=== PATIENT | female | born 1985 | race Hispanic/Latino ===

== ENCOUNTER 2018-03-03 17:15 | Emergency (ER) | payer SELFPAY ==
[2018-03-03] MEDS ORDERED: NACL 0.9% 1000 ML 1,000 ML IV ONE (17:31)
[2018-03-03 18:12] LABS: Alanine Aminotransferase 17 units/L (7-56); BUN/Creatinine Ratio 11; Blood Urea Nitrogen 10 mg/dL (7-17); Calcium 9.2 mg/dL (8.4-10.2); Hemolysis Index 1
[2018-03-03 18:34] LABS: Red Blood Count 4.61 M/mm3 (3.65-5.03)
[2018-03-03 18:36] LABS: Hematocrit 37.9 % (30.3-42.9); Hemoglobin 12.8 gm/dl (10.1-14.3); Lymphocytes % (Auto) 11.7 % (13.4-35.0); Mean Corpuscular HGB Conc 34 % (30-34); Mean Corpuscular Hemoglobin 28 pg (28-32); Mean Corpuscular Volume 82 fl (79-97); Platelet Count 330 K/mm3 (140-440); Red Cell Distribution Width 14.6 % (13.2-15.2)
[2018-03-03 18:37] LABS: Basophils % (Auto) 0.4 % (0.0-1.8); Eosinophils % (Auto) 0.2 % (0.0-4.3); Lymphocytes # (Auto) 1.2 K/mm3 (1.2-5.4); Monocytes # (Auto) 1.3 K/mm3 (0.0-0.8); Monocytes % (Auto) 12.3 % (0.0-7.3)
--- NOTE | 2018-03-03 20:06 | XRay Report ---
FINAL REPORT EXAM: XR ABDOMEN 1V AP HISTORY: Abdominal distention, pain, nausea TECHNIQUE: KUB was performed Comparison: None FINDINGS: Moderate fecal retention. No suspicious calcifications. Air is present distally in the region of the pelvis. Cannot assess for free air. The imaged axial skeleton is unremarkable. Lung bases are clear. IMPRESSION: Nonspecific bowel gas pattern. Mild diffuse fecal retention.
[2018-03-03 20:47] LABS: Amorphous Crystals,Urine Few; Bacteria,Urine 4+ /HPF (Negative); Bilirubin,Urine NEG (Negative); Blood,Urine MOD (Negative); Color,Urine Yellow (Yellow); Mucus,Urine FEW /HPF
[2018-03-03 20:51] LABS: WBC,Urine > 182.0 /HPF (0.0-6.0)
[2018-03-04] MEDS ORDERED: TORADOL IV ONE (02:16)
--- NOTE | 2018-03-04 02:18 | Emergency Department Report ---
ED Abdominal Pain HPI - General Chief Complaint: Abdominal Pain Stated Complaint: ABD PAIN/CHILLS/HEAD PAIN Time Seen by Provider: 03/04/18 02:02 Source: patient Mode of arrival: Ambulatory Limitations: No Limitations - History of Present Illness MD Complaint: abdominal pain -: days(s) (5) Location: periumbilical Radiation: RLQ Migration to: RLQ Severity: severe Quality: cramping Consistency: constant Worsens With: eating Associated Symptoms: nausea, vomiting, chills, anorexia. denies: diarrhea, constipation - Related Data Previous Rx's Medication Instructions Recorded Last Taken Type Cefdinir 300 mg PO BID 10 Days #20 capsule 03/04/18 Unknown Rx Ibuprofen 800 mg PO Q6H PRN #20 tablet 03/04/18 Unknown Rx Promethazine [Phenergan TAB] 25 mg PO Q6HR PRN #10 tab 03/04/18 Unknown Rx Allergies Allergy/AdvReac Type Severity Reaction Status Date / Time Penicillins Allergy Hives Verified 03/03/18 17:31 ED Review of Systems ROS: Stated complaint: ABD PAIN/CHILLS/HEAD PAIN Other details as noted in HPI Comment: All other systems reviewed and negative Constitutional: fever, malaise Gastrointestinal: abdominal pain, nausea, vomiting. denies: diarrhea, constipation Musculoskeletal: back pain ED Past Medical Hx - Past Medical History Previous Medical History?: Yes Additional medical history: cyst on colon - Surgical History Past Surgical History?: Yes Additional Surgical History: "colon surgery". Trauma surgery to right leg. - Social History Smoking Status: Never Smoker Substance Use Type: None Other Social History: Lives in [place]. Stopped at our hospital during her drive from [facility]. - Medications Home Medications: Home Medications Medication Instructions Recorded Confirmed Last Taken Type Cefdinir 300 mg PO BID 10 Days #20 capsule 03/04/18 Unknown Rx Ibuprofen 800 mg PO Q6H PRN #20 tablet 03/04/18 Unknown Rx Promethazine [Phenergan TAB] 25 mg PO Q6HR PRN #10 tab 03/04/18 Unknown Rx ED Physical Exam - General Limitations: No Limitations General appearance: alert, in no apparent distress - Head Head exam: Present: atraumatic, normocephalic - Eye Eye exam: Present: normal appearance - ENT ENT exam: Present: mucous membranes moist - Neck Neck exam: Present: normal inspection. Absent: tenderness, meningismus - Respiratory Respiratory exam: Present: normal lung sounds bilaterally. Absent: respiratory distress, wheezes, rales, rhonchi - Cardiovascular Cardiovascular Exam: Present: regular rate, normal rhythm, normal heart sounds. Absent: systolic murmur, diastolic murmur, rubs, gallop - GI/Abdominal GI/Abdominal exam: Present: soft, distended, tenderness, guarding, rebound, normal bowel sounds - Extremities Exam Extremities exam: Present: normal inspection - Neurological Exam Neurological exam: Present: alert, oriented X3 - Psychiatric Psychiatric exam: Present: normal affect, normal mood - Skin Skin exam: Present: warm, dry, intact, normal color. Absent: rash ED Course Vital Signs 03/03/18 03/04/18 17:26 03:05 Temperature 100.2 F H Pulse Rate 91 H 88 Respiratory 16 16 Rate Blood Pressure 180/102 Blood Pressure 139/86 [Left] O2 Sat by Pulse 98 Oximetry ED Medical Decision Making - Lab Data Result diagrams: 03/03/18 17:40 03/03/18 17:40 Laboratory Results - last 24 hr 03/03/18 03/03/18 03/03/18 17:40 17:40 17:40 WBC 10.6 RBC 4.61 Hgb 12.8 Hct 37.9 MCV 82 MCH 28 MCHC 34 RDW 14.6 Plt Count 330 Lymph % (Auto) 11.7 L [place] % (Auto) 12.3 H Eos % (Auto) 0.2 Baso % (Auto) 0.4 Lymph # 1.2 [place] # 1.3 H Eos # 0.0 Baso # 0.0 Seg Neutrophils % 75.4 H Seg Neutrophils # 8.0 H Sodium 138 Potassium 3.2 L Chloride 96.5 L Carbon Dioxide 27 Anion Gap 18 BUN 10 Creatinine 0.9 Estimated GFR > 60 BUN/Creatinine Ratio 11 Glucose 88 Calcium 9.2 Total Bilirubin 1.10 AST 17 ALT 17 Alkaline Phosphatase 74 Total Protein 8.1 Albumin 4.0 Albumin/Globulin Ratio 1.0 HCG, Qual Negative Urine Color Urine Turbidity Urine pH Ur Specific [place] Urine Protein Urine Glucose (UA) Urine Ketones Urine Blood Urine Nitrite Urine Bilirubin Urine Urobilinogen Ur Leukocyte Esterase Urine WBC (Auto) Urine RBC (Auto) U Epithel Cells (Auto) Urine Bacteria (Auto) Amorphous Crystals Urine Mucus 03/03/18 20:20 WBC RBC Hgb Hct MCV MCH MCHC RDW Plt Count Lymph % (Auto) [place] % (Auto) Eos % (Auto) Baso % (Auto) Lymph # [place] # Eos # Baso # Seg Neutrophils % Seg Neutrophils # Sodium Potassium Chloride Carbon Dioxide Anion Gap BUN Creatinine Estimated GFR BUN/Creatinine Ratio Glucose Calcium Total Bilirubin AST ALT Alkaline Phosphatase Total Protein Albumin Albumin/Globulin Ratio HCG, Qual Urine Color Yellow Urine Turbidity Clear Urine pH 5.0 Ur Specific [place] 1.017 Urine Protein 100 mg/dl Urine Glucose (UA) Neg Urine Ketones Neg Urine Blood Mod Urine Nitrite Pos Urine Bilirubin Neg Urine Urobilinogen 2.0 Ur Leukocyte Esterase Lg Urine WBC (Auto) > 182.0 H Urine RBC (Auto) 9.0 U Epithel Cells (Auto) 6.0 Urine Bacteria (Auto) 4+ Amorphous Crystals Few Urine Mucus Few Vital Signs - 24 hr 03/03/18 03/04/18 17:26 03:05 Temperature 100.2 F H Pulse Rate 91 H 88 Respiratory 16 16 Rate Blood Pressure 180/102 Blood Pressure 139/86 [Left] O2 Sat by Pulse 98 Oximetry - Radiology Data Radiology results: report reviewed Perinephric stranding mild hydronephrosis without obstructing stone - Medical Decision Making Ms. Sadler is a very pleasant healthy 37-year-old female. She presents with fever back and abdominal pain. She has of acute pyelonephritis with pyuria and perinephric stranding. She received first dose of ceftriaxone in the ED. prescribed cefdinir, ibuprofen and promethazine. Critical care attestation.: If time is entered above; I have spent that time in minutes in the direct care of this critically ill patient, excluding procedure time. ED Disposition Clinical Impression: Acute pyelonephritis Disposition: DC-01 TO HOME OR SELFCARE Is pt being admited?: No Does the pt Need Aspirin: No Condition: Stable Instructions: Acute Pyelonephritis (ED) Prescriptions: Cefdinir 300 mg PO BID 10 Days #20 capsule Ibuprofen 800 mg PO Q6H PRN #20 tablet PRN Reason: Pain , Severe (7-10) Promethazine [Phenergan TAB] 25 mg PO Q6HR PRN #10 tab PRN Reason: Nausea Referrals: PRIMARY CARE, [Primary Care Provider] - 3-5 Days Time of Disposition: 04:51
[2018-03-04] MEDS ORDERED: NACL 0.9% 1000 ML 1,000 ML ONE (02:47)
--- NOTE | 2018-03-04 03:07 | Cat Scan Report ---
FINAL REPORT PROCEDURE: CT ABDOMEN PELVIS W CON TECHNIQUE: Computerized axial tomography of the abdomen and pelvis was performed after the IV injection of iodinated nonionic contrast. HISTORY: periumbilical right lower quadrant pain COMPARISON: No prior studies are available for comparison. FINDINGS: Visualized lower thorax: No significant abnormality. Liver: Normal size and attenuation. Spleen: Normal size and attenuation. Gallbladder and biliary system: Normal. Pancreas: Normal. Adrenals: Normal. Kidneys: Both kidneys have normal size. There is some streaking of the left perinephric fat. Slight left hydronephrosis and proximal hydroureter is identified. The remainder of the ureter has a normal caliber. No obstructing stone is seen. Findings may be consistent with urinary tract infection or sequelae from recently passed calculus.. GI tract: The stomach is normal. The small bowel has a normal caliber without obstruction. No ileus or enteritis. Cecum, appendix and colon are normal. Lymph nodes and mesentery: Normal. Vasculature: Normal. Bladder: Normal. Reproductive organs: The uterus is normal. There are follicular cysts identified on each ovary.. Peritoneum: No free fluid. Musculoskeletal structures: No significant abnormality. Other: None. IMPRESSION: There is mild streaking of the left perinephric fat slight left hydronephrosis and proximal hydroureter. No obstructing stone or lesion is identified. This may be consistent with a urinary tract infection or recently passed calculus. There is no evidence of intestinal obstruction. The appendix is normal.
[2018-03-04] MEDS ORDERED: ROCEPHIN/NS 2 GM/100 ML 2 GM/100 ML BAG IV ONE (04:36)
[2018-03-04 05:47] VITALS: BP 115/71
== END 2018-03-04 05:48 | disposition home or self-care (01) ==
LOC: ED 17:15
DX: N10 Acute pyelonephritis (principal); Z88.0 Allergy status to penicillin
CPT/HCPCS: 36415; 74018; 74177; 80053; 81001; 84703; 85025; 96361; 96365; 96375; 99284; J0696; J1885; J7030; Q9967